=== PATIENT | male | born 1985 | race Caucasian/White ===

== ENCOUNTER 2017-06-11 04:32 | Emergency (ER) | payer BC ==
[2017-06-11] MEDS ORDERED: Ketorolac 60 MG/2 ML SDV IM ONE (04:42)
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
[2017-06-11] MEDS ORDERED: Bacitracin/Neomycin/Polymyxin B Oint 0.9 GM U/D Packet ONE (05:14)
[2017-06-11] MEDS ORDERED: Iopamidol 755 Mg/ML 100 ML Bottle IVPUSH ONE (05:51)
[2017-06-11 05:57] VITALS: BP 102/62
[2017-06-11 06:02] LABS: CHLORIDE,CL 101 mEq/L (98-106); SODIUM,NA 135 mEq/L (136-145)
[2017-06-11] MEDS ORDERED: ALPRAZOLAM PO PRN (06:41)
== END 2017-06-11 06:56 | disposition home or self-care (01) ==
LOC: CC.ED 04:32
DX: S30.1XXA Contusion of abdominal wall, initial encounter (principal); S50.312A Abrasion of left elbow, initial encounter; S80.212A Abrasion, left knee, initial encounter; F41.9 Anxiety disorder, unspecified; F32.9 Major depressive disorder, single episode, unspecified; F17.210 Nicotine dependence, cigarettes, uncomplicated; Z88.1 Allergy status to other antibiotic agents; V29.9XXA Motorcycle rider (driver) (passenger) injured in unspecified traffic accident, initial encounter; Y93.55 Activity, bike riding
CPT/HCPCS: 36415; 71020; 74160; 80053; 81001; 85025; 96372; 99285; J1885; Q9967